=== PATIENT | female | born 2000 | race Caucasian/White ===

== ENCOUNTER 2023-06-05 20:22 | Emergency (ER) | payer OTHER, SELFPAY ==
[2023-06-05 20:30] VITALS: BP 140/78; PULSE 78; RESP 16; TEMP 36.8
--- NOTE | 2023-06-05 20:33 | XR_ITS ---
The [address] [address] Patient Name: JOHN CARLIN MRN: [id number] date: 2000 Sex: F Assigned Patient Location: ER Current Patient Location: ED.MAIN Accession/Order Number: [id number] Exam Date: 06/05/2023 20:45 Report Date: 06/05/2023 21:14 At the request of: DEVON PATEL Procedure: XR hand RT min 3V EXAM: XR hand RT min 3V HISTORY: fall, hand injury COMPARISON: None. TECHNIQUE: 3 views right hand FINDINGS: No acute fracture or aggressive osseous abnormality. Joint spaces and alignment are preserved. Carpal rows and arcs are maintained. XR/XR hand RT min 3V IMPRESSION: No acute osseous abnormality of the right hand. Electronically authenticated by: PAOLA ORTEGA Date: 06/05/2023 21:14
--- NOTE | 2023-06-05 20:44 | PC.NURSE ---
Pt had not taken any Tylenol or Motrin at home
[2023-06-05] MEDS: IBUPROFEN 400 MG TABLET PO (20:51)
--- NOTE | 2023-06-05 20:56 | ED.UPPEXIN1 ---
HPI - Extremity Injury (Upper) General Chief Complaint: Extremity Injury, Upper Stated Complaint: INJURED R HAND Time Seen by Provider: 06/05/23 20:33 Source: patient Mode of arrival: walk-in Limitations: no limitations History of Present Illness HPI narrative: about 7 hours ago, the patient was walking down stairs, lost her footing and fell, striking the dorsum of the right hand against a table. She now has pain, swelling and bruising to the dorsum of the right hand along the 3rd through 5th MCP joints. It is painful to make a fist with the right hand. No wrist or forearm pain. Related Data Home Medications Medication Instructions Recorded Confirmed No Known Home Medications 06/05/23 06/05/23 Allergies Allergy/AdvReac Type Severity Reaction Status Date / Time No Known Drug Allergies Allergy Verified 06/05/23 20:33 [facility] Social History Smoking status: Current every day smoker Exam Narrative Exam Narrative: Nurses notes and vital signs reviewed and patient is not hypoxic. afebrile General: Well-appearing and in no apparent distress. Skin: Warm, dry, no pallor noted. Cardiovascular: Normal peripheral perfusion. Respiratory: No accessory muscle use or respiratory distress. Musculoskeletal: Tenderness, swelling and ecchymosis along the dorsum of the right hand at the 3rd through 5th MCP joints with tenderness along the 3rd through 5th proximal phalanges and the shafts of the 3rd through 5th metacarpals. No thumb or carpal tenderness. Able to move fingers of the right hand through normal ROM but with pain. Right wrist, forearm and elbow with normal ROM, no additional upper extremity edema/swelling Neurological: A&O x4. No cranial nerve dysfunction observed. No truncal ataxia. Moves all extremities. Sensation intact. Psychiatric: Cooperative and interactive. Normal mood and affect. Constitutional Vital Signs, click to edit/add: Last Vital Signs Temp 98.3 F 06/05/23 20:30 Pulse 78 06/05/23 20:30 Resp 16 06/05/23 20:30 BP 140/78 06/05/23 20:30 Course Vital Signs Vital signs: Vital Signs Temperature 98.3 F 06/05/23 20:30 Pulse Rate 78 06/05/23 20:30 Respiratory Rate 16 06/05/23 20:30 Blood Pressure 140/78 06/05/23 20:30 Temperature 98.3 F 06/05/23 20:30 Pulse Rate 78 06/05/23 20:30 Respiratory Rate 16 06/05/23 20:30 Blood Pressure 140/78 06/05/23 20:30 MDM - Extremity Injury (Upper) MDM Narrative Medical decision making narrative: patient got motrin for pain and had xrays of the right hand. No fracture or dislocation identified. Patient given reassurance, ED nurse applied an renetta wrap to the patient's right hand and the patient was discharged home. motrin and tylenol for pain. Imaging Data xr hand: My impression: NAD Radiologist's impression: Patient Name: JOHN CARLIN MRN: [id number] date: 2000 Sex: F Assigned Patient Location: ER Current Patient Location: ED.MAIN Accession/Order Number: [id number] Exam Date: 06/05/2023 20:45 Report Date: 06/05/2023 21:14 At the request of: DEVON PATEL Procedure: XR hand RT min 3V EXAM: XR hand RT min 3V HISTORY: fall, hand injury COMPARISON: None. TECHNIQUE: 3 views right hand FINDINGS: No acute fracture or aggressive osseous abnormality. Joint spaces and alignment are preserved. Carpal rows and arcs are maintained. IMPRESSION: No acute osseous abnormality of the right hand. Electronically authenticated by: PAOLA ORTEGA Date: 06/05/2023 21:14 Discharge Plan Discharge Chief Complaint: Extremity Injury, Upper Clinical Impression: Contusion of dorsum of right hand Patient Disposition: Home, Self-Care Time of Disposition Decision: 21:03 Prescriptions / Home Meds: No Action No Known Home Medications Instructions: Contusion in Adults (ED), Hand Sprain (ED) Stand Alone Forms: Portal Instructions
== END 2023-06-05 21:27 | disposition home or self-care (01) ==
PROVIDERS: Emergency Provider Emergency Medicine
DX: S60.221A Contusion of right hand, initial encounter (principal); W10.9XXA Fall (on) (from) unspecified stairs and steps, initial encounter; F17.210 Nicotine dependence, cigarettes, uncomplicated
CPT/HCPCS: 73130; 99283